=== PATIENT | female | born 1960 | race American Indian/Alaskan Native ===

== ENCOUNTER 2016-10-09 14:31 | Emergency (ER) | payer OTHER, BC ==
[2016-10-09 14:54] VITALS: BP 164/108
[2016-10-09] MEDS ORDERED: ULTRAM PO ONE (16:23)
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
== END 2016-10-09 17:13 | disposition home or self-care (01) ==
LOC: ED 14:31
DX: S39.012A Strain of muscle, fascia and tendon of lower back, initial encounter (principal); S16.1XXA Strain of muscle, fascia and tendon at neck level, initial encounter; I10 Essential (primary) hypertension; I25.2 Old myocardial infarction; E78.00 Pure hypercholesterolemia, unspecified; F17.210 Nicotine dependence, cigarettes, uncomplicated; Z79.82 Long term (current) use of aspirin; Z88.1 Allergy status to other antibiotic agents; Z88.2 Allergy status to sulfonamides; Z88.8 Allergy status to other drugs, medicaments and biological substances; V49.40XA Driver injured in collision with unspecified motor vehicles in traffic accident, initial encounter; Y93.89 Activity, other specified; Y92.89 Other specified places as the place of occurrence of the external cause; Y99.8 Other external cause status
CPT/HCPCS: 99282

== ENCOUNTER 2017-09-09 03:35 | Emergency (ER) | payer BC ==
[2017-09-09 05:04] LABS: Basophils % (Auto) 0.2 % (0.0-1.8); Eosinophils # (Auto) 0.1 K/mm3 (0.0-0.4); Eosinophils % (Auto) 0.7 % (0.0-4.3); Hematocrit 46.7 % (30.3-42.9); Hemoglobin 15.8 gm/dl (10.1-14.3); Lymphocytes % (Auto) 17.2 % (13.4-35.0); Mean Corpuscular HGB Conc 34 % (30-34); Mean Corpuscular Hemoglobin 31 pg (28-32); Mean Corpuscular Volume 93 fl (79-97); Monocytes # (Auto) 0.7 K/mm3 (0.0-0.8); Monocytes % (Auto) 5.8 % (0.0-7.3); Red Blood Count 5.02 M/mm3 (3.65-5.03); Red Cell Distribution Width 12.9 % (13.2-15.2)
[2017-09-09 05:08] LABS: Platelet Count 200 K/mm3 (140-440)
[2017-09-09 05:17] LABS: Alanine Aminotransferase 16 units/L (7-56); Albumin 4.3 g/dL (3.9-5); BUN/Creatinine Ratio 10; Blood Urea Nitrogen 6 mg/dL (7-17); Calcium 9.6 mg/dL (8.4-10.2); Hemolysis Index 4
[2017-09-09 06:42] LABS: Bilirubin,Urine NEG (Negative); Blood,Urine NEG (Negative); Color,Urine Yellow (Yellow); Mucus,Urine 1+ /HPF; Protein,Urine <15 mg/dL mg/dL (Negative); Urobilinogen,Urine < 2.0 mg/dL (<2.0); WBC,Urine < 1.0 /HPF (0.0-6.0)
[2017-09-09 10:17] VITALS: BP 146/69
[2017-09-09] MEDS ORDERED: NACL 0.9% 1000 ML 1,000 ML IV ONE (10:23)
[2017-09-09] MEDS ORDERED: ZOFRAN IV ONE (10:23)
[2017-09-09] MEDS ORDERED: TORADOL IV ONE (10:23)
--- NOTE | 2017-09-09 10:45 | Emergency Department Report ---
ED Abdominal Pain HPI - General Chief Complaint: Abdominal Pain Stated Complaint: LT FLANK PAIN Time Seen by Provider: 09/09/17 10:18 Source: patient Mode of arrival: Ambulatory Limitations: No Limitations - History of Present Illness Initial Comments: This is a 57-year-old female nontoxic, well nourished in appearance, no acute signs of distress presents to the ED with c/o of abdominal pain, nausea, and left flank pain 1 day. Patient denies any vomiting. The patient describes abdominal pain as aching mostly on the left upper abdominal and radiates to left flank area. Patient denies any chest pain, short of breath, headache, stiff neck, numbness, tingling. Patient denies any urinary symptoms. Patient states allergies to erythromycin, sulfa, tetracycline, and Lipitor. Past medical history includes diabetes, LA, hypertension. MD Complaint: abdominal pain, flank pain -: Last night Location: LUQ Radiation: L flank Migration to: no migration Severity: mild Severity scale (0 -10): 8 Quality: aching Consistency: constant Improves With: nothing Worsens With: nothing Associated Symptoms: nausea. denies: vomiting, diarrhea, fever, chills, constipation, dysuria, hematemesis, hematochezia, melena, hematuria, anorexia, syncope - Related Data Home Medications Medication Instructions Recorded Confirmed Last Taken Aspirin [Aspirin TAB] 325 mg PO QDAY 05/02/13 04/27/17 Unknown Rosuvastatin Calcium [Crestor] 40 mg PO QHS 05/02/13 04/27/17 Unknown amLODIPine [Norvasc] 5 mg PO DAILY 05/02/13 04/27/17 Unknown Atenolol [Tenormin] 50 mg PO BID 04/27/17 04/27/17 Unknown Previous Rx's Medication Instructions Recorded Last Taken Type Ciprofloxacin HCl [Ciprofloxacin 500 mg PO Q12HR #10 tab 04/27/17 Unknown Rx TAB] Cyclobenzaprine [Flexeril 10 MG 10 mg PO TID PRN #14 tablet 04/27/17 Unknown Rx TAB] Ezetimibe [Zetia] 10 mg PO QDAY tablet 04/27/17 Unknown Rx HYDROcodone/APAP 5-325 [[place] 1 each PO Q8HR PRN tablet 04/27/17 Unknown Rx 5-325 mg TAB] Ondansetron [Zofran TAB] 4 mg PO Q8HR PRN #30 tablet 04/27/17 Unknown Rx metroNIDAZOLE [Flagyl] 500 mg PO Q8HR #14 tablet 04/27/17 Unknown Rx Ibuprofen [Motrin] 600 mg PO Q8H PRN #30 tablet 09/09/17 Unknown Rx Ondansetron [Zofran Odt] 4 mg PO Q8HR PRN #20 tab.rapdis 09/09/17 Unknown Rx Allergies Allergy/AdvReac Type Severity Reaction Status Date / Time erythromycin base Allergy Vomiting Verified 10/09/16 14:48 [Erythromycin Base] Sulfa (Sulfonamide Allergy Unknown Verified 10/09/16 14:48 Antibiotics) Tetracyclines Allergy Vomiting Verified 10/09/16 14:48 atorvastatin calcium AdvReac WEAKNESS Verified 10/09/16 14:48 [From Lipitor] ED Review of Systems ROS: Stated complaint: LT FLANK PAIN Other details as noted in HPI Constitutional: denies: chills, fever Eyes: denies: eye pain, eye discharge, vision change ENT: denies: ear pain, throat pain Respiratory: denies: cough, shortness of breath, wheezing Cardiovascular: denies: chest pain, palpitations Endocrine: no symptoms reported Gastrointestinal: abdominal pain, nausea. denies: vomiting, diarrhea Genitourinary: denies: urgency, dysuria, discharge Musculoskeletal: denies: back pain, joint swelling, arthralgia Skin: denies: rash, lesions Neurological: denies: headache, weakness, paresthesias Psychiatric: denies: anxiety, depression Hematological/Lymphatic: denies: easy bleeding, easy bruising ED Past Medical Hx - Past Medical History Previous Medical History?: Yes Hx Hypertension: Yes Hx Heart Attack/AMI: Yes (3 LA's with stents) Hx Diabetes: Yes (Patient states she is not Diabetic ?) Additional medical history: high cholesterol - Surgical History Past Surgical History?: Yes Additional Surgical History: left mastectomy, 1 - Social History Smoking Status: Never Smoker Substance Use Type: None - Medications Home Medications: Home Medications Medication Instructions Recorded Confirmed Last Taken Type Aspirin [Aspirin TAB] 325 mg PO QDAY 05/02/13 04/27/17 Unknown History Rosuvastatin Calcium [Crestor] 40 mg PO QHS 05/02/13 04/27/17 Unknown History amLODIPine [Norvasc] 5 mg PO DAILY 05/02/13 04/27/17 Unknown History Atenolol [Tenormin] 50 mg PO BID 04/27/17 04/27/17 Unknown History Ciprofloxacin HCl [Ciprofloxacin 500 mg PO Q12HR #10 tab 04/27/17 Unknown Rx TAB] Cyclobenzaprine [Flexeril 10 MG 10 mg PO TID PRN #14 tablet 04/27/17 Unknown Rx TAB] Ezetimibe [Zetia] 10 mg PO QDAY tablet 04/27/17 Unknown Rx HYDROcodone/APAP 5-325 [[place] 1 each PO Q8HR PRN tablet 04/27/17 Unknown Rx 5-325 mg TAB] Ondansetron [Zofran TAB] 4 mg PO Q8HR PRN #30 tablet 04/27/17 Unknown Rx metroNIDAZOLE [Flagyl] 500 mg PO Q8HR #14 tablet 04/27/17 Unknown Rx Ibuprofen [Motrin] 600 mg PO Q8H PRN #30 tablet 09/09/17 Unknown Rx Ondansetron [Zofran Odt] 4 mg PO Q8HR PRN #20 tab.rapdis 09/09/17 Unknown Rx ED Physical Exam - General Limitations: No Limitations General appearance: alert, in no apparent distress - Head Head exam: Present: atraumatic, normocephalic - Eye Eye exam: Present: normal appearance Pupils: Present: normal accommodation - ENT ENT exam: Present: normal exam, mucous membranes moist - Neck Neck exam: Present: normal inspection, full ROM. Absent: tenderness, meningismus, lymphadenopathy - Respiratory Respiratory exam: Present: normal lung sounds bilaterally. Absent: respiratory distress, wheezes, rales, rhonchi, stridor, chest wall tenderness, accessory muscle use, decreased breath sounds, prolonged expiratory - Cardiovascular Cardiovascular Exam: Present: regular rate, normal rhythm, normal heart sounds. Absent: bradycardia, tachycardia, irregular rhythm, systolic murmur, diastolic murmur, rubs, gallop - GI/Abdominal GI/Abdominal exam: Present: soft, tenderness (LUQ), normal bowel sounds. Absent : distended, guarding, rebound, rigid, diminished bowel sounds - Expanded GI/Abdominal Exam Expanded GI/Abdominal exam: Absent: psoas sign, obturator sign, heel tap sign, Lopez's sign, Rovsing's sign, tenderness at Mcburney's Point, ascites - Rectal Rectal exam: Present: deferred - Extremities Exam Extremities exam: Present: normal inspection, full ROM, normal capillary refill. Absent: tenderness - Back Exam Back exam: Present: normal inspection, full ROM. Absent: tenderness, CVA tenderness (R), CVA tenderness (L), muscle spasm, paraspinal tenderness, vertebral tenderness, rash noted - Neurological Exam Neurological exam: Present: alert, oriented X3, normal gait - Psychiatric Psychiatric exam: Present: normal affect, normal mood - Skin Skin exam: Present: warm, dry, intact, normal color. Absent: rash ED Course Vital Signs 09/09/17 09/09/17 09/09/17 04:40 10:14 10:15 Temperature 98.1 F 98.6 F Pulse Rate 85 77 Respiratory 14 17 Rate Blood Pressure 206/93 Blood Pressure 146/69 [Right] O2 Sat by Pulse 99 98 Oximetry - Reevaluation(s) Reevaluation #1: 09/09/17 10:48 Patient is speaking in full sentences with no signs of distress noted. ED Medical Decision Making - Lab Data Result diagrams: 09/09/17 04:50 09/09/17 04:50 - Medical Decision Making This is a 57-year-old female that presents with abdominal pain. Patient is stable and was examined by me. There is slight abdominal tenderness. Negative signs of symptoms of appendicitis. Labs obtained. UA obtained. CT with contrast of abdomen obtained and dictated by the radiologist. Patient is notified of the report with no questions noted by the patient. Vital signs are stable prior to discharge. PAtient received Toradol, Zofran, and Normal saline IV in the ED which patient stated symptoms has resovled and subsided. A by mouth challenge has been obtained and patient tolerated well with no nausea vomiting. Patient was notified of strict precatuions of appendictis symptoms and to return to the ED if symptoms occurs as soon as possible. Patient was also instructed to Follow-up with a primary care doctor in 3-5 days or if symptoms worsen and continue return to emergency room as soon as possible. At time of discharge, the patient does not seem toxic or ill in appearance. No acute signs of distress noted. Patient agrees to discharge treatment plan of care. No further questions noted by the patient. Critical care attestation.: If time is entered above; I have spent that time in minutes in the direct care of this critically ill patient, excluding procedure time. ED Disposition Clinical Impression: Nausea Abdominal pain Qualifiers: Abdominal location: left upper quadrant Qualified Code(s): R10.12 - Left upper quadrant pain Disposition: - TO HOME OR SELFCARE Is pt being admited?: No Does the pt Need Aspirin: No Condition: Stable Instructions: Abdominal Pain (ED), Acute Nausea and Vomiting (ED), Ondansetron (By mouth) Additional Instructions: Follow-up with a primary care doctor in 3-5 days or if symptoms worsen and continue return to emergency room as soon as possible. Prescriptions: Ibuprofen [Motrin] 600 mg PO Q8H PRN #30 tablet PRN Reason: Pain Ondansetron [Zofran Odt] 4 mg PO Q8HR PRN #20 tab.rapdis PRN Reason: Nausea Referrals: RONY KING MD [Primary Care Provider] - 3-5 Days PRIMARY CARE, [Referring] - 3-5 Days RANJAN BELTRAN MD [Staff Physician] - 3-5 Days [facility] [place] [Outside] - 3-5 Days [facility] [Outside] - 3-5 Days Forms: Work/School Release Form(ED)
--- NOTE | 2017-09-09 13:40 | Cat Scan Report ---
CT ABDOMEN PELVIS WITH CONTRAST: HISTORY: abdominal pain, flank pain. COMPARISON: none. TECHNIQUE: Helical CT in 1.25mm intervals following IV contrast. Sagittal and coronal reconstructions. FINDINGS: Lung bases: Normal. Liver: Normal. Biliary system: Normal. Pancreas: Normal. Spleen: Normal. Kidneys/ureters/bladder: Normal. Adrenal glands: Normal. Aorta: Moderate diffuse calcifications. No aneurysm, dissection or stenosis. Intestines: There is moderate diffuse diverticulosis of the colon. No inflammatory changes or obstruction is appreciated. Appendix: Normal. Pelvic viscera: 2 cm exophytic fibroid from the right lateral wall of the uterus is identified. The adnexa are unremarkable. Ascites: None. Adenopathy: None. Musculoskeletal: No suspicious bony lesion or fracture is identified mild lumbar spondylosis. IMPRESSION: No acute inflammatory process is identified. Diverticulosis of the colon. Mild uterine fibroid disease.
== END 2017-09-09 13:53 | disposition home or self-care (01) ==
LOC: ED 03:35
DX: R10.12 Left upper quadrant pain (principal); R11.0 Nausea; I10 Essential (primary) hypertension; I25.2 Old myocardial infarction; E11.9 Type 2 diabetes mellitus without complications; E78.00 Pure hypercholesterolemia, unspecified; Z79.82 Long term (current) use of aspirin; Z88.1 Allergy status to other antibiotic agents; Z88.2 Allergy status to sulfonamides; Z88.8 Allergy status to other drugs, medicaments and biological substances
CPT/HCPCS: 36415; 74177; 80053; 81001; 82962; 85025; 96374; 96375; 99284; Q9967

== ENCOUNTER 2020-02-03 09:20 | Outpatient (CLI) | payer BC ==
--- NOTE | 2020-02-03 10:13 | Mammography Report ---
DIGITAL SCREENING MAMMOGRAM WITH CAD, 02/03/2020 CLINICAL INFORMATION / INDICATION: Routine screening mammography. TECHNIQUE: Digital right 2D mammography was obtained in the craniocaudal and mediolateral oblique pr ojections. This examination was interpreted with the benefit of Computer-Aided Detection analysis. COMPARISON: 12/24/2017 FINDINGS: Breast Density: There are scattered areas of fibroglandular density. No dominant mass, suspicious calcifications, or architectural distortion in the right breast. No interval change. IMPRESSION: No mammographic evidence of malignancy. Follow up recommendation: Routine yearly BI-RADS Category 1: Negative. A "normal" or negative report should not discourage follow up or biopsy of a clinically significant f inding. A written summary of these findings will be mailed to the patient. The patient will be entered into a mammography reporting system which will generate a reminder letter for the patient's next appointmen t at the appropriate interval. The [employer] recommends yearly mammograms starting at age 40 and continuing as l david as a woman is in good health. Breast MRI is recommended for women with an approximate 20-25% or greater lifetime risk of breast cancer, including women with a strong family history of breast or ova kitty cancer or who have been treated for Hodgkin's disease. Signer Name: Мария Elizalde MD Signed: 02/03/2020 10:08 AM Workstation Name: [id number]
== END 2020-02-03 09:21 | disposition home or self-care (01) ==
LOC: SPVWC 09:20
PROVIDERS: ATTEND Surgery
DX: Z12.31 Encounter for screening mammogram for malignant neoplasm of breast (principal)

== ENCOUNTER 2021-02-04 10:59 | Outpatient (CLI) | payer MEDICARE, OTHER ==
--- NOTE | 2021-02-05 11:54 | Mammography Report ---
DIGITAL SCREENING MAMMOGRAM WITH CAD, 02/04/2021 INDICATION: Routine screening mammography. TECHNIQUE: Digital right 2D mammography was obtained in the craniocaudal and mediolateral oblique pr ojections. This examination was interpreted with the benefit of Computer-Aided Detection analysis. COMPARISON: 02/03/2020 FINDINGS: Breast Density: There are scattered areas of fibroglandular density. There is no evidence of dominant mass, suspicious calcifications or architectural distortion in the r ight breast. IMPRESSION: BI-RADS Category 1: Negative. No mammographic evidence of malignancy. Recommend routine screening m ammography in one year. A "normal" or negative report should not discourage follow up or biopsy of a clinically significant f inding. A written summary of these findings will be mailed to the patient. The patient will be entered into a mammography reporting system which will generate a reminder letter for the patient's next appointmen t at the appropriate interval. The [employer] recommends yearly mammograms starting at age 40 and continuing as l david as a woman is in good health. Breast MRI is recommended for women with an approximate 20-25% or greater lifetime risk of breast cancer, including women with a strong family history of breast or ova kitty cancer or who have been treated for Hodgkin's disease. Signer Name: Benoit Jj MD Signed: 02/05/2021 11:50 AM Workstation Name: [id number]
== END 2021-02-04 11:00 | disposition home or self-care (01) ==
LOC: MAMMO 10:59
DX: Z12.31 Encounter for screening mammogram for malignant neoplasm of breast (principal); N64.89 Other specified disorders of breast